=== PATIENT | female | born 1985 | race Caucasian/White ===

== ENCOUNTER 2023-03-20 09:19 | Day surgery (SDC) | payer OTHER, SELFPAY ==
--- NOTE | 2023-03-20 09:39 | US_ITS ---
[address] [address] Patient Name: SILVIO CALDERON MRN: [id number] date: 1985 Sex: F Assigned Patient Location: US Current Patient Location: US Accession/Order Number: [id number] Exam Date: 03/20/2023 09:39 Report Date: 03/20/2023 14:06 At the request of: ELLA ROLAND Procedure: US biopsy thyroid EXAMINATION: US biopsy thyroid, US biopsy FNA add lesion HISTORY: Bilateral Thyroid Nodule COMPARISON: No relevant comparison available. TECHNIQUE: After obtaining informed consent, an ultrasound-guided biopsy was performed in the usual sterile manner. FINDINGS: RIGHT NODULE: IMAGING: Ultrasound BIOPSY NEEDLE: 25-gauge, 2 inch SPECIMEN TYPE, #, LOCATION: 3 fine-needle aspirates, 3.0 cm right thyroid nodule MEDICATION: 2 cc 1% buffered lidocaine COMPLICATIONS: None. LABORATORY: OTHER: Negative. LEFT NODULE: IMAGING: Ultrasound BIOPSY NEEDLE: 25-gauge, 2 inch SPECIMEN TYPE, #, LOCATION: 3 fine-needle aspirates, 2.3 cm left thyroid nodule MEDICATION: 2 cc 1% lidocaine COMPLICATIONS: None. LABORATORY: OTHER: Negative. US/US biopsy thyroid IMPRESSION: Uneventful ultrasound guided biopsy one nodule in the right, one nodule in the left. The patient was instructed to obtain follow up care and biopsy results from the referring physician. Electronically authenticated by: ANIKA MCMULLEN Date: 03/20/2023 14:06
[2023-03-20 09:50] VITALS: BP 115/73; PULSE 78; O2SAT 98
[2023-03-20] MEDS: LIDOCAINE HCL 10 ML, SODIUM BICARBONATE 1 MEQ INJ (11:00)
--- NOTE | 2023-03-20 11:16 | US_ITS ---
[address] [address] Patient Name: SILVIO CALDERON MRN: [id number] date: 1985 Sex: F Assigned Patient Location: US Current Patient Location: US Accession/Order Number: [id number] Exam Date: 03/20/2023 09:35 Report Date: 03/20/2023 14:06 At the request of: ELLA ROLAND Procedure: US biopsy FNA add lesion EXAMINATION: US biopsy thyroid, US biopsy FNA add lesion HISTORY: Bilateral Thyroid Nodule COMPARISON: No relevant comparison available. TECHNIQUE: After obtaining informed consent, an ultrasound-guided biopsy was performed in the usual sterile manner. FINDINGS: RIGHT NODULE: IMAGING: Ultrasound BIOPSY NEEDLE: 25-gauge, 2 inch SPECIMEN TYPE, #, LOCATION: 3 fine-needle aspirates, 3.0 cm right thyroid nodule MEDICATION: 2 cc 1% buffered lidocaine COMPLICATIONS: None. LABORATORY: OTHER: Negative. LEFT NODULE: IMAGING: Ultrasound BIOPSY NEEDLE: 25-gauge, 2 inch SPECIMEN TYPE, #, LOCATION: 3 fine-needle aspirates, 2.3 cm left thyroid nodule MEDICATION: 2 cc 1% lidocaine COMPLICATIONS: None. LABORATORY: OTHER: Negative. US/US biopsy FNA add lesion IMPRESSION: Uneventful ultrasound guided biopsy one nodule in the right, one nodule in the left. The patient was instructed to obtain follow up care and biopsy results from the referring physician. Electronically authenticated by: ANIKA MCMULLEN Date: 03/20/2023 14:06
== END 2023-03-20 11:25 | disposition home or self-care (01) ==
LOC: US 09:25
PROVIDERS: Radiology Diagnostic Radiology; Visit Provider Otolaryngology
DX: E04.1 Nontoxic single thyroid nodule (principal)
CPT/HCPCS: 10005; 10006; 88173